=== PATIENT | male | born 1980 | race Caucasian/White ===

== ENCOUNTER 2020-11-22 16:53 | Emergency (ER) | payer BC, SELFPAY ==
[2020-11-22 16:54] VITALS: BP 145/82; PULSE 81; RESP 18; TEMP 36.5; O2SAT 97; BMI 35.4
--- NOTE | 2020-11-22 17:30 | RAD_ITS ---
STUDY: X-RAY - LUMBAR SPINE REASON FOR EXAM: Male, 40 years old. Injury/Pain TECHNIQUE: 3 view(s) of the lumbar spine were obtained. COMPARISON: None FINDINGS: Normal lumbar lordosis. There is no substantial scoliosis. There is a normal alignment of the vertebrae. Normal vertebral bodies and endplates. Normal disc space heights. The soft tissue structures are unremarkable. RAD/Lumbar Spine 2 or 3 Views IMPRESSION: Normal x-ray examination of the lumbar spine. Electronically Signed: Abilio Kaur MD at 18:10 EDT Tel , Service support ,
[2020-11-22] MEDS: Ketorolac 60 MG/2 ML Vial IM (17:46)
--- NOTE | 2020-11-22 18:50 | ED.DCSUM_ITS ---
- ER Visit Summary Date of Service: 11/22/20 Chief Complaint: Low back pain History of Present Illness: The patient is a 40 M who presents with low back pain that began today. Patient states he was going up some steps when he missed a step and fell. Patient states that his pain became worse when he bent over after that. Patient states he felt a pop. Patient admits to some tightness in his lower lumbar area. Patient states the pain is worse with movement. Patient denies any radiation of the pain. Patient denies any paresthesias or weakness. Patient denies any abdominal pain. Patient denies any urine or stool incontinence. Patient denies any saddle anesthesia. Physical Examination: Vital signs are stable. Patient is afebrile. Patient is in no acute distress. Musculoskeletal exam reveals tenderness and spasm of the right lumbar paraspinal muscles. There is some mild midline tenderness. There is no edema or ecchymosis. There is no bony crepitance or step-off. Range of motion was limited in all motions of the lumbar spine secondary to pain. Strength is 5/5 bilaterally in the lower extremities. There are no sensory deficits noted. Patient is ambulating without difficulty. Heart was regular rate and rhythm. Lungs are clear and equal bilaterally. Test Results: X-rays of the lumbar spine were obtained. There are 3 views. On my interpretation, there is no acute fracture or spondylolisthesis or spondylolysis. Radiologist also interpreted the x-rays and agrees. Emergency Department Course and Treatment: Patient was given injection of Toradol here. Patient was given a prescription for Naprosyn. Patient was instructed use ice to the area. Patient was instructed to follow-up with his primary care physician in 5 to 7 days. Patient understood and was agreeable with the plan. All questions were answered. Disposition: Discharge home Impression: Lumbar strain This note was generated with [employer] dictation software. It may contain incorrect words, spelling, and punctuation that were not noted in review of the chart prior to signing ED Disposition - Plan for ED Patient: Disposition: Home or Assisted Living Diagnosis: Acute lumbar myofascial strain Instructions: ED Back Pain (Acute or Chronic) Prescriptions: Naproxen [Naprosyn] 500 mg PO BID PRN #20 tablet Transmission Status: Received by [id number] Referrals: Doctor,Your [STAFF PHYSICIAN] - 5-7 Days
== END 2020-11-22 19:02 | disposition home or self-care (01) ==
PROVIDERS: Emergency Provider Emergency Medicine
DX: S39.012A Strain of muscle, fascia and tendon of lower back, initial encounter (principal); W10.9XXA Fall (on) (from) unspecified stairs and steps, initial encounter
CPT/HCPCS: 72100; 96372; 99282